=== PATIENT | female | born 1980 | race Caucasian/White ===

== ENCOUNTER 2021-05-14 09:14 | Emergency (ER) | payer SELFPAY ==
[~2021-05-14] VITALS: Ht 160 cm; Wt 57.2 kg
[2021-05-14 09:25] VITALS: BP 119/70
[2021-05-14] MEDS ORDERED: TETRACAINE HCL/PF 0.5% OPTH 4 ML BTL OP ONE (10:40)
[2021-05-14] MEDS ORDERED: FLUORESCEIN OPTH STRIP 1 MG OP ONE (10:40)
[2021-05-14] MEDS ORDERED: KETO5SOL OP (11:06)
[2021-05-14 11:13] VITALS: BP 115/70
== END 2021-05-14 11:12 | disposition home or self-care (01) ==
LOC: MED 09:14
DX: O26.892 Other specified pregnancy related conditions, second trimester (principal); S05.01XA Injury of conjunctiva and corneal abrasion without foreign body, right eye, initial encounter; X58.XXXA Exposure to other specified factors, initial encounter; Y93.89 Activity, other specified; Y92.89 Other specified places as the place of occurrence of the external cause; Y99.8 Other external cause status
CPT/HCPCS: 99283